=== PATIENT | female | born 1970 | race Caucasian/White ===

== ENCOUNTER → 2017-05-21 | Outpatient (CLI) | payer OTHER ==
[~2017-05-21] MED LIST: ACYC400T4 PO; ESTR-22 TD; MELO15TA24 PO; NALT1TAB PO
== END ==
LOC: STAR 08:20
PROVIDERS: ATTEND Orthopaedic Surgery
DX: Z02.9 Encounter for administrative examinations, unspecified (principal)

== ENCOUNTER 2017-05-24 15:19 | Day surgery (SDC) | payer OTHER ==
[~2017-05-24] VITALS: Ht 175.3 cm; Wt 89.8 kg
[2017-05-24] MEDS ORDERED: CEFAZOLIN 1,000 MG ONE (15:30)
[2017-05-24] MEDS ORDERED: FENTANYL PF 250 MCG/5ML ONE (15:30)
[2017-05-24] MEDS ORDERED: MIDAZOLAM 1 MG/ML, 2ML ONE (15:30)
[2017-05-24] MEDS ORDERED: DEXAMETHASONE 4 MG/ML, 1ML ONE (15:31)
[2017-05-24] MEDS ORDERED: GLYCOPYRROLATE 0.2MG/1ML, 5ML ONE (15:31)
[2017-05-24] MEDS ORDERED: SUCCINYLCHOLINE 20 MG/ML, 10ML ONE (15:31)
[2017-05-24] MEDS ORDERED: NEOSTIGMINE 1 MG/ML, 10ML ONE (15:31)
[2017-05-24] MEDS ORDERED: ONDANSETRON 2MG/ML, 2ML ONE (15:31)
[2017-05-24] MEDS ORDERED: PROPOFOL 10 MG/ML, 20ML ONE (15:31)
[2017-05-24] MEDS ORDERED: ROCURONIUM 10 MG/ML ONE (15:31)
[2017-05-24 15:33] VITALS: BP 147/97
[2017-05-24] MEDS ORDERED: LACTATED RINGERS 1,000 ML IV SCH (15:35)
[2017-05-24] MEDS ORDERED: LIDOCAINE 1%, 2ML ONE (15:40)
[2017-05-24] MEDS ORDERED: EPINEPHRINE 1 MG/ML, 1ML ONE (15:41)
[2017-05-24] MEDS ORDERED: BUPIVACAINE/PF 0.25% ONE (15:41)
[2017-05-24] MEDS ORDERED: LIDOCAINE 1%, 2ML SQ PRN (16:00)
[2017-05-24] MEDS ORDERED: PHENYLEPHRINE 10 MG/ML ONE (16:05)
[2017-05-24] MEDS ORDERED: LIDOCAINE 4%, 4 ML SYR/CANN TP ONE (16:05)
[2017-05-24] MEDS ORDERED: EPHEDRINE 50 MG/ML, 1ML ONE (16:05)
[2017-05-24] MEDS ORDERED: FENTANYL PF 100 MCG/2ML IV PRN (16:30)
[2017-05-24] MEDS ORDERED: ONDANSETRON 2MG/ML, 2ML IVPush PRN (16:30)
[2017-05-24] MEDS ORDERED: PROMETHAZINE 25 MG/ML, 1ML IV PRN (16:30)
[2017-05-24] MEDS ORDERED: ACETAMINOPHEN 325 MG TABLET PO PRN (16:30)
[2017-05-24] MEDS ORDERED: OXYcodone 5 MG/5 ML ORAL.SOL UDC PO PRN (16:30)
[2017-05-24] MEDS ORDERED: HYDROmorphone 1 MG/ML, 1ML IV PRN (16:30)
[2017-05-24] MEDS ORDERED: HYDROcodone/APAP 7.5-325MG/15ML UDC PO PRN (16:30)
== END 2017-05-24 18:38 | disposition home or self-care (01) ==
LOC: OUT 15:19
PROVIDERS: ATTEND Orthopaedic Surgery
DX: M75.111 Incomplete rotator cuff tear or rupture of right shoulder, not specified as traumatic (principal); S43.431A Superior glenoid labrum lesion of right shoulder, initial encounter; M75.41 Impingement syndrome of right shoulder; X58.XXXA Exposure to other specified factors, initial encounter; Y93.89 Activity, other specified; Y92.89 Other specified places as the place of occurrence of the external cause; Y99.8 Other external cause status
CPT/HCPCS: 29823; 29826; J0171; J0330; J0690; J1100; J2250; J2370; J2405; J2704; J2710; J3010; J3490; J7120

== ENCOUNTER 2019-04-18 13:58 | Outpatient (CLI) | payer OTHER ==
[2019-04-18] MEDS ORDERED: amoxicillin PO (15:05)
[2019-04-18] MEDS ORDERED: DIPH25CA61 PO (15:06)
== END 2019-04-18 23:59 | disposition home or self-care (01) ==
LOC: STAR 13:58
PROVIDERS: ATTEND Orthopaedic Surgery
DX: Z02.9 Encounter for administrative examinations, unspecified (principal)

== ENCOUNTER 2019-04-26 05:13 | Day surgery (SDC) | payer OTHER ==
[~2019-04-26] VITALS: Ht 175.3 cm; Wt 102.5 kg
[~2019-04-26 05:13] MED LIST changes: +DIPH25CA61 PO; +amoxicillin PO
[2019-04-26] MEDS ORDERED: LACTATED RINGERS 1,000 ML IV SCH (05:56)
[2019-04-26] MEDS ORDERED: LIDOCAINE-MPF 1%, 2ML INFIL ONE (06:00)
[2019-04-26 06:01] VITALS: BP 138/89
[2019-04-26] MEDS ORDERED: LIDOCAINE/PF 1%-EPI 1:200K, 30 ML ONE (06:10)
[2019-04-26] MEDS ORDERED: ROPIvacaine/PF 0.5%, 30 ML ONE (06:10)
[2019-04-26] MEDS ORDERED: MIDAZOLAM 1 MG/ML, 2ML ONE (06:31)
[2019-04-26] MEDS ORDERED: FENTANYL PF 250 MCG/5ML ONE (06:32)
[2019-04-26] MEDS ORDERED: ONDANSETRON 2MG/ML, 2ML ONE (07:06)
[2019-04-26] MEDS ORDERED: ROCURONIUM 10 MG/ML,10ML ONE (07:06)
[2019-04-26] MEDS ORDERED: PROPOFOL 10 MG/ML, 20ML ONE (07:06)
[2019-04-26] MEDS ORDERED: CEFAZOLIN 1,000 MG ONE (07:06)
[2019-04-26] MEDS ORDERED: SUCCINYLCHOLINE 20 MG/ML, 10ML ONE (07:06)
[2019-04-26] MEDS ORDERED: DEXAMETHASONE 4 MG/ML, 1ML ONE (07:06)
[2019-04-26] MEDS ORDERED: KETOROLAC 30 MG/1 ML ONE (07:43)
[2019-04-26] MEDS ORDERED: FENTANYL PF 100 MCG/2ML ONE ×2 (07:48→08:07)
[2019-04-26] MEDS ORDERED: OXYcodone 5 MG/5 ML ORAL.SOL UDC ONE (07:48)
[2019-04-26] MEDS: FENTANYL PF 100 MCG/2ML IV PRN ×4 (07:50→08:15)
[2019-04-26] MEDS ORDERED: PROMETHAZINE 25 MG/ML, 1ML IV PRN (08:00)
[2019-04-26] MEDS ORDERED: MEPERIDINE/PF 25MG/0.5ML IVPush PRN (08:00)
[2019-04-26] MEDS ORDERED: hydrALAzine 20 MG/ML, 1ML IV PRN (08:00)
[2019-04-26] MEDS ORDERED: HYDROmorphone 1 MG/ML, 1ML INJ IV PRN (08:00)
[2019-04-26] MEDS ORDERED: ALBUTEROL SULFATE 2.5 MG/3 ML NPPB PRN (08:00)
[2019-04-26] MEDS ORDERED: OXYcodone 5 MG/5 ML ORAL.SOL UDC PO PRN (08:00)
[2019-04-26] MEDS ORDERED: LABETALOL 5MG/ML, 20ML IV PRN (08:00)
[2019-04-26] MEDS ORDERED: KETOROLAC 30 MG/1 ML IV PRN (08:00)
[2019-04-26] MEDS ORDERED: METOCLOPRAMIDE 5 MG/ML, 2ML IV PRN (08:00)
[2019-04-26] MEDS ORDERED: ONDANSETRON 2MG/ML, 2ML IVPush PRN (08:00)
[2019-04-26] MEDS ORDERED: DIAZEPAM 5 MG/ML, 2ML ONE (08:17)
[2019-04-26] MEDS ORDERED: DIAZEPAM 5 MG/ML, 2ML IV PRN (08:30)
== END 2019-04-26 09:40 | disposition home or self-care (01) ==
LOC: OUT 05:13
PROVIDERS: ATTEND Orthopaedic Surgery
DX: S83.232A Complex tear of medial meniscus, current injury, left knee, initial encounter (principal); M22.42 Chondromalacia patellae, left knee; J45.909 Unspecified asthma, uncomplicated; Z72.89 Other problems related to lifestyle; Z79.1 Long term (current) use of non-steroidal anti-inflammatories (NSAID); Z79.899 Other long term (current) drug therapy; Z82.3 Family history of stroke; Z98.890 Other specified postprocedural states; X58.XXXA Exposure to other specified factors, initial encounter; Y93.89 Activity, other specified; Y92.89 Other specified places as the place of occurrence of the external cause; Y99.8 Other external cause status
CPT/HCPCS: 29881; J0330; J0690; J1100; J1885; J2250; J2405; J2704; J2795; J3010; J3360; J3490; J7120